=== PATIENT | male | born 1955 | race Asian ===

== ENCOUNTER 2024-07-19 07:54 | Day surgery (SDC) | payer OTHER ==
[~2024-07-19] VITALS: Ht 165.1 cm; Wt 72.6 kg
[2024-07-19] MEDS ORDERED: MIDAZOLAM 5 MG/5 ML VIAL ONE (10:22)
[2024-07-19] MEDS ORDERED: fentaNYL citrate 0.05 MG/ML VIAL ONE (10:22)
[2024-07-19] MEDS ORDERED: LIDOCAINE 2% 100 MG/5 ML UJET TP ONE (10:23)
[2024-07-19] MEDS: fentaNYL citrate 0.05 MG/ML VIAL IVP ONE (10:55)
[2024-07-19] MEDS: MIDAZOLAM 2 MG/2 ML VIAL IVP ONE (10:56)
[2024-07-19 12:57] LABS: H. PYLORI NEGATIVE (NEGATIVE)
== END 2024-07-19 12:10 | disposition home or self-care (01) ==
LOC: MDS 07:54 → MMU 07:57 → MDS 12:10
PROVIDERS: ATTEND Internal Medicine Gastroenterology
DX: Z12.11 Encounter for screening for malignant neoplasm of colon (principal); K21.9 Gastro-esophageal reflux disease without esophagitis; K64.4 Residual hemorrhoidal skin tags; I10 Essential (primary) hypertension; E78.00 Pure hypercholesterolemia, unspecified
CPT/HCPCS: 36415; 86677; J2250; J3010